=== PATIENT | female | born 1985 | race Caucasian/White ===

== ENCOUNTER → 2020-02-11 | Outpatient (POV) | payer OTHER ==
--- NOTE | 2020-02-12 14:15 | IRCOV ---
[facility] IR Consult Office Visit IR Consult Office Visit DATE: Feb 11, 2020 Patient agreed to this telephone consultation. I spent 20 minutes talking to the patient. REASON FOR CONSULTATION/CHIEF COMPLAINT: Vulval varicosities. HISTORY OF PRESENT ILLNESS: 34-year-old female 2 month status post recent vaginal delivery of her fifth child, complains of aching bulging varicose veins on the vagina. She states these run over her mons/vagina and down the inner aspect of her right thigh all the way to the knee. There is associated right lower extremity swelling which is worse with prolonged standing. The varices are worse during the course of the day and especially when she is standing for prolonged periods of time. They're associated with aching and she has to sit down and/or lie down for relief. 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 She reports this happened with prior pregnancies but not as bad. She denies any pressure or pain in the pelvis region. She denies any pain with menstruation. She does report heavy periods and was placed on oral contraceptive pill at a young age for period regulation. She does describe deep dyspareunia with intercourse. No family history of varicose veins. No prior pelvic surgery. ALLERGIES: Please see below. HOME MEDICATIONS: Please see below. PAST MEDICAL HISTORY: None PAST SURGICAL HISTORY: Left inguinal hernia repair 2014 FAMILY HISTORY: Noncontributory. SOCIAL HISTORY: No alcohol. Denies smoking or drugs. Currently breast-feeding. REVIEW OF SYSTEMS: Otherwise negative. PHYSICAL EXAMINATION: No video on patient side. LABORATORY DATA: None available. Imaging: No imaging available. ASSESSMENT/PLAN: 34-year-old female status post recent vaginal delivery complaining of vulval varicosities and deep dyspareunia associated with varicose veins down the right lower extremity. I agree patient would benefit from a venogram to assess for gonadal vein congestion/pelvic congestion syndrome as this can present with vulval varicosities and pain. We discussed the risks and benefits of venogram and gonadal vein embolization and patient would like to proceed. There is the option of doing a CT venogram but these are not 100% specific or sensitive for gonadal vein reflux. The venogram is still the goals standard to assess for gonadal vein reflux. We have scheduled the patient for th is procedure. Thank you for this referral. Cc REYNOLD Castro MD Feb 12, 2020 14:15
== END ==
LOC: M TMIRPOV 08:00
PROVIDERS: ATTEND Radiology Diagnostic Radiology
DX: I86.3 Vulval varices (principal); N94.10 Unspecified dyspareunia

== ENCOUNTER → 2020-03-19 | Outpatient (CLI) | payer OTHER ==
[~2020-03-19] MED LIST: ISOVUE-300 61% 50ML VIAL As Ordered ONE; LIDOCAINE 1% MDV 20ML VIAL As Ordered ONE; MIDAZOLAM INJ 2MG/2ML VIAL (J2250 PER 1MG) As Ordered ONE; PRENTAB53 PO; diphenhydrAMINE 50MG/ML VIAL (J1200) As Ordered ONE; fentaNYL 100 MCG/2 ML INJECTION (J3010) As Ordered ONE
--- NOTE | 2020-03-19 08:23 | IRHP ---
[facility] IR Pre-Procedure H & P General Date of Service: Mar 19, 2020 Procedure: Same Day Surgery Interval History and Physical I have seen the patient and reviewed last H & P performed within 30 days. There is no significant interval change. History of Present Illness Chief Complaint The patient is a 34-year-old female admitted with a reason for visit of Pelvic Congestions Syndrome. PRE-PROCEDURE DIAGNOSIS: pelvic congestion HEART: normal rate. LUNGS: normal breathing at rest. ASA Classification ASA Classification: I-Healthy, III-Severe systemic dis. Mallampati Score: II NPO: Yes Problems with prior sedation: No Obstructive Sleep Apnea: No Plan moderate sedation Home Medications Scheduled Vit,Calc76/Iron/Folic (Prenatabs Rx Tablet), 1 TAB PO DAILY, (Reported) VS, I&O, 24H, Fishbone Vital Signs/I&O Vital Signs Date Time Temp Pulse Resp B/P (MAP) Pulse Ox O2 Delivery O2 Flow Rate FiO2 03/19/20 08:07 97.5 73 18 98 Room Air Laboratory Data CBC/BMP REYNOLD SILVA MD Mar 19, 2020 08:23
[2020-03-19 08:36] LABS: HEMATOCRIT 41.1 % (36.0-47.0); HEMOGLOBIN 13.5 g/dl (12.0-15.5); MEAN CORPUSCULAR HEMOGLOBIN 30.6 pg (27.0-33.0); MEAN CORPUSCULAR HGB CONC 32.8 g/dl (32.0-36.5); MEAN CORPUSCULAR VOLUME 93.2 fl (80.0-96.0); PLATELET COUNT, AUTOMATED 233 10^3/uL (150-450); RED BLOOD COUNT 4.41 10^6/uL (4.00-5.40); WHITE BLOOD COUNT 8.4 10^3/uL (4.0-10.0)
[2020-03-19 11:55] VITALS: BP 108/63
--- NOTE | 2020-03-23 10:47 | POST-OPPD ---
Postoperative Procedure Note Date Of Procedure: Mar 19, 2020 Time Of Procedure: 16:00 IR LEFT RENAL VENOGRAM. IR RIGHT GONADAL VENOGRAM. IR RIGHT ILIAC VENOGRAM. IR LEFT ILIAC VENOGRAM. IR ULTRASOUND-GUIDED RIGHT COMMON FEMORAL VEIN ACCESS. Clinical Information:Pelvic congestion syndrome. Vaginal and right lower extremity varices. Physician: Dr. Posadas. Procedure: The patient was advised of the benefits, risks, and alternatives of the procedure and informed consent was obtained. A time out was performed with verification of the patient's name, MRN, site of procedure, and type of procedure to be performed. The patient was positioned in the supine position on the angiographic table. The site was prepped and draped in the usual sterile fashion. Moderate sedation was performed by the physician including the presence of an independent trained RN who assisted in monitoring the patient's level of consciousness and physiological status. Following the administration of fentanyl and Versed, the physician spent 60 minutes of continuous [id number] time with the patient. Preliminary ultrasound of the right groin was performed, demonstrating patent and compressible right common femoral vein. The right common femoral vein was accessed under ultrasound guidance, using a micropuncture kit. A Quoteroller wire was advanced into the inferior vena cava under fluoroscopy guidance. The micro-sheath was exchanged for a short sheath. A right common iliac venogram was performed which demonstrates normal flow from the right common iliac vein into the inferior vena cava and unremarkable inferior vena cava. The micro-sheath was exchanged for a 5 Turkmen Giorgio sheath. A 5 Turkmen cobra catheter in conjunction with a wire was then used to catheterize the left renal vein. A left renal venogram was performed which demonstrates normal flow in the left renal vein. Competent gonadal valve with no reflux into the left gonadal vein. The catheter in conjunction with a wire was then used to interrogate for refluxing right gonadal vein. No refluxing right gonadal vein seen. The catheter in conjunction with a wire was then used to gain up and over access into the left external iliac vein. A left external iliac venogram was performed which demonstrates occlusion of flow from the left external iliac vein, and preferential filling of cross pelvic collaterals and drainage via the right iliac vein. The catheter was then retracted under fluoroscopy guidance into the left common iliac vein. A left common iliac venogram was performed and this demonstrates the left common iliac vein is patent however there is the external compression edwin at the left common iliac and IVC junction. There is reflux down the left external iliac vein followed by preferential filling of cross pelvic collaterals and drainage via the right iliac vein. The catheter was removed. The sheath was retracted back to the right external iliac vein. A right external iliac venogram was performed which demonstrates normal flow in the right external iliac and right common iliac vein, back to the IVC. No cross pelvic filling from the right side. No obstruction to flow from the right external iliac vein. The sheath, catheter and wire were removed, pressure held and hemostasis achieved. A sterile dressing was applied to the site. The patient tolerated the procedure well and was returned to the PRU in stable condition. EBL:< 5 mL. Complications:None. Conclusions: 1. Venogram is negative for left or right gonadal vein reflux and therefore negative for pelvic congestion syndrome. 2. Normal central venous drainage from the right lower extremity. 2. Venography suggests left common iliac compression without clinical symptomatology of left lower extremity swelling or recurrent DVTs. Patient is made aware of this however, there is no indication for left iliac stenting without applicable clinical symptomatology. Thank you for this referral. Cc REYNOLD Castro MD Mar 23, 2020 10:47
== END ==
LOC: M IRPRO 07:50
PROVIDERS: ATTEND Radiology Diagnostic Radiology
DX: N94.89 Other specified conditions associated with female genital organs and menstrual cycle (principal); I86.3 Vulval varices; I83.90 Asymptomatic varicose veins of unspecified lower extremity
CPT/HCPCS: 36011; 36012; 75822; 75831; 85027; 99152; 99153; C1769; C1887; C1894; J1644; J2250; Q9967

== ENCOUNTER → 2020-04-07 | Outpatient (POV) | payer OTHER ==
[~2020-04-07] MED LIST changes: -ISOVUE-300 61% 50ML VIAL As Ordered ONE; -LIDOCAINE 1% MDV 20ML VIAL As Ordered ONE; -MIDAZOLAM INJ 2MG/2ML VIAL (J2250 PER 1MG) As Ordered ONE; -diphenhydrAMINE 50MG/ML VIAL (J1200) As Ordered ONE; -fentaNYL 100 MCG/2 ML INJECTION (J3010) As Ordered ONE
--- NOTE | 2020-04-09 10:17 | IRPN ---
[facility] IR Progress Note IR Progress Note DATE: Apr 07, 2020 Patient agreed to the stomach in follow-up. I spent 10 minutes talking to the patient. FOLLOW-UP: Status post gonadal venography for pelvic congestion syndrome. Gonadal venography was negative for gonadal vein reflux. Incidentally she was to have a mild compression of the left common iliac vein without left lower extremity symptoms or symptoms of May Thurner syndrome. Patient states she is healed up at the access site without any bruising or lumps. She is to follow-up with Dr. Davenport for right leg varicose vein and vaginal varicose vein treatment. IMPRESSION: Doing well status post gonadal venography; negative for gonadal vein reflux. Patient to follow-up with Dr. Davenport for local treatment of right leg varicose veins and vaginal varicosity. Thank you for this referral REYNOLD SILVA MD Apr 09, 2020 10:17
== END ==
LOC: M TMIRPOV 09:03
PROVIDERS: ATTEND Radiology Diagnostic Radiology
DX: Z48.812 Encounter for surgical aftercare following surgery on the circulatory system (principal); N94.89 Other specified conditions associated with female genital organs and menstrual cycle; I83.891 Varicose veins of right lower extremity with other complications; I86.3 Vulval varices